=== PATIENT | male | born 1960 | race African-American/Black ===

== ENCOUNTER 2017-12-24 11:49 | Emergency (ER) | payer MEDICAID ==
[~2017-12-24] VITALS: Ht 190.5 cm; Wt 110.4 kg
[2017-12-24 12:02] VITALS: BP 157/74
== END 2017-12-24 12:39 | disposition home or self-care (01) ==
LOC: ED 12:33
DX: K08.89 Other specified disorders of teeth and supporting structures (principal)
CPT/HCPCS: 99283